=== PATIENT | male | born 1940 | race Caucasian/White ===

== ENCOUNTER 2016-10-01 18:19 | Inpatient (IN) | payer MEDICARE, OTHER ==
[2016-10-01] MEDS ORDERED: ASPIRIN81 M1 (20:54)
[2016-10-01] MEDS ORDERED: NORVASC10 M2 (20:54)
[2016-10-01] MEDS ORDERED: GLUCOTROL5 M1 (20:55)
[2016-10-01] MEDS ORDERED: PRINIVIL10 M1 (20:55)
[2016-10-01] MEDS ORDERED: INVOKANA100 MG (20:55)
[2016-10-01] MEDS ORDERED: OMEPRAZOLE20 M4 (20:56)
[2016-10-01] MEDS ORDERED: ZOCOR10 M1 (20:56)
[2016-10-01] MEDS ORDERED: GLUCOPHAGE1000 M1 (20:56)
[2016-10-01] MEDS ORDERED: COUMADIN3 M1 (20:58)
[2016-10-01] MEDS ORDERED: COUMADIN4 M1 (20:59)
[2016-10-02 05:40] LABS: BASO % 0.6 % (0-2); EOS % 4.8 % (0-7); EOSINOPHIL ABSOLUTE COUNT 0.3 tho/cmm (0.0-0.7); HCT-HEMATOCRIT 40.3 % (36.0-53.5); HGB-HEMOGLOBIN 13.5 gm/dl (13.5-17.0); IMMATURE GRANULOCYTES ABSOLUTE 0.02 tho/cmm (0-0.03); IMMATURE GRANULOCYTES PERCENT 0.4 % (0-0.3); LYMPH % 28.2 % (20-45); LYMPH ABSOLUTE COUNT 1.5 tho/cmm (0.8-4.5); MCH (MEAN CORPUSCULAR HGB) 30.4 pg (28.0-32.0); MCHC MEAN CORPUSCULAR HGB CONC 33.5 % (32.0-36.0); MCV (MEAN CELL VOLUME) 90.8 fl (82.0-96.0); MONO % 8.4 % (0-12); MONOCYTE ABSOLUTE COUNT 0.4 tho/cmm (0.0-1.2); NEUTROPHILS % 57.6 % (40-80); PLATELET COUNT 198 tho/cmm (150-450); RED BLOOD COUNT 4.44 mil/cmm (4.40-5.70); WHITE BLOOD COUNT 5.2 tho/cmm (4.0-10.0)
[2016-10-02 05:41] LABS: INR 2.3 INR (0.9-1.1); PROTHROMBIN TIME 27.3 SECONDS (9.0-13.6)
[2016-10-02 05:46] LABS: ANION GAP 11 mmol/L (0-20); BLOOD UREA NITROGEN 21 mg/dl (6-24); CALCIUM 9.6 mg/dl (8.5-10.5); CARBON DIOXIDE-VENOUS 27 mmol/L (22-32); CHLORIDE 105 mmol/l (96-110); CREATININE 0.94 mg/dl (0.60-1.30); GLUCOSE 130 mg/dL (70-110); POTASSIUM 3.8 mmol/L (3.7-5.1); SODIUM 139 mmol/L (135-145); eGFR VALUE FOR BLACK >60 mL/Min
[2016-10-03 06:48] LABS: INR 1.6 INR (0.9-1.1); PROTHROMBIN TIME 18.8 SECONDS (9.0-13.6)
[2016-10-04 06:42] LABS: INR 1.2 INR (0.9-1.1); PROTHROMBIN TIME 14.5 SECONDS (9.0-13.6)
[2016-10-05 06:14] LABS: INR 1.2 INR (0.9-1.1); PROTHROMBIN TIME 13.5 SECONDS (9.0-13.6)
[2016-10-06 06:12] LABS: INR 1.1 INR (0.9-1.1); PROTHROMBIN TIME 12.8 SECONDS (9.0-13.6)
[2016-10-06 14:27] LABS: BASO % 0.4 % (0-2); EOS % 3.7 % (0-7); EOSINOPHIL ABSOLUTE COUNT 0.3 tho/cmm (0.0-0.7); HCT-HEMATOCRIT 39.3 % (36.0-53.5); IMMATURE GRANULOCYTES ABSOLUTE 0.05 tho/cmm (0-0.03); IMMATURE GRANULOCYTES PERCENT 0.7 % (0-0.3); MCH (MEAN CORPUSCULAR HGB) 30.4 pg (28.0-32.0); MCHC MEAN CORPUSCULAR HGB CONC 33.1 % (32.0-36.0); MCV (MEAN CELL VOLUME) 91.8 fl (82.0-96.0); MEAN PLATELET VOLUME 10.1 cmc (9.4-12.4); MONO % 5.4 % (0-12); MONOCYTE ABSOLUTE COUNT 0.4 tho/cmm (0.0-1.2); NEUTROPHIL ABSOLUTE COUNT 4.1 tho/cmm (1.6-8.0); NEUTROPHIL-AUTOMATED 4.1 tho/cmm (1.6-8.0); NEUTROPHILS % 60.8 % (40-80); PLATELET COUNT 203 tho/cmm (150-450); RED BLOOD COUNT 4.28 mil/cmm (4.40-5.70); WHITE BLOOD COUNT 6.8 tho/cmm (4.0-10.0)
[2016-10-06 14:30] LABS: ALB/GLOB RATIO 0.4 (0.8-2.0); ALBUMIN 2.9 g/dl (3.5-5.0); ALKALINE PHOSPHATASE 81 U/L (33-138); ALT/SGPT 21 U/L (12-78); ANION GAP 10 mmol/L (0-20); AST/SGOT 19 U/L (10-40); BILIRUBIN,TOTAL 0.4 mg/dl (0.0-1.5); BLOOD UREA NITROGEN 29 mg/dl (6-24); CALCIUM 9.7 mg/dl (8.5-10.5); CARBON DIOXIDE-VENOUS 29 mmol/L (22-32); CHLORIDE 100 mmol/l (96-110); CREATININE 1.09 mg/dl (0.60-1.30); GLUCOSE 117 mg/dL (70-110); LIPASE 173 U/L (73-393); POTASSIUM 4.3 mmol/L (3.7-5.1); SODIUM 135 mmol/L (135-145); eGFR VALUE FOR BLACK >60 mL/Min
[2016-10-07 05:21] LABS: BASO % 0.7 % (0-2); EOS % 3.9 % (0-7); EOSINOPHIL ABSOLUTE COUNT 0.2 tho/cmm (0.0-0.7); HCT-HEMATOCRIT 39.9 % (36.0-53.5); HGB-HEMOGLOBIN 12.9 gm/dl (13.5-17.0); IMMATURE GRANULOCYTES ABSOLUTE 0.04 tho/cmm (0-0.03); IMMATURE GRANULOCYTES PERCENT 0.7 % (0-0.3); LYMPH % 35.1 % (20-45); MCHC MEAN CORPUSCULAR HGB CONC 32.3 % (32.0-36.0); MCV (MEAN CELL VOLUME) 92.8 fl (82.0-96.0); MEAN PLATELET VOLUME 9.9 cmc (9.4-12.4); MONO % 6.9 % (0-12); MONOCYTE ABSOLUTE COUNT 0.4 tho/cmm (0.0-1.2); NEUTROPHILS % 52.7 % (40-80); PLATELET COUNT 210 tho/cmm (150-450); WHITE BLOOD COUNT 5.7 tho/cmm (4.0-10.0)
[2016-10-07 05:25] LABS: INR 1.2 INR (0.9-1.1); PROTHROMBIN TIME 14.5 SECONDS (9.0-13.6)
[2016-10-07 05:41] LABS: ALBUMIN 2.8 g/dl (3.5-5.0); ANION GAP 12 mmol/L (0-20); BLOOD UREA NITROGEN 27 mg/dl (6-24); CALCIUM 9.4 mg/dl (8.5-10.5); CARBON DIOXIDE-VENOUS 27 mmol/L (22-32); CHLORIDE 103 mmol/l (96-110); GLUCOSE 155 mg/dL (70-110); SODIUM 138 mmol/L (135-145)
[2016-10-07 05:45] LABS: ALB/GLOB RATIO 0.4 (0.8-2.0); ALKALINE PHOSPHATASE 88 U/L (33-138); ALT/SGPT 21 U/L (12-78); AST/SGOT 14 U/L (10-40); BILIRUBIN,TOTAL 0.3 mg/dl (0.0-1.5); CREATININE 1.14 mg/dl (0.60-1.30); eGFR VALUE FOR BLACK >60 mL/Min
[2016-10-07] MEDS ORDERED: CYCLOBENZAPRINE10 M1 PO (13:00)
[2016-10-07] MEDS ORDERED: PERCOCET 5-3251 EACH PO (13:00)
== END 2016-10-07 17:45 | DRG 517 ==
LOC: 5EB 18:19
PROVIDERS: Emergency Medicine; Internal Medicine; ADMIT Internal Medicine
PROC: 0QS03ZZ Reposition Lumbar Vertebra, Percutaneous Approach (ICD-10-PCS; principal; 2016-10-04)
PROC: 0QU03JZ Supplement Lumbar Vertebra with Synthetic Substitute, Percutaneous Approach (ICD-10-PCS; 2016-10-04)
DX: M48.56XA Collapsed vertebra, not elsewhere classified, lumbar region, initial encounter for fracture (principal); E11.40 Type 2 diabetes mellitus with diabetic neuropathy, unspecified; H81.10 Benign paroxysmal vertigo, unspecified ear; I10 Essential (primary) hypertension; J45.909 Unspecified asthma, uncomplicated; K21.9 Gastro-esophageal reflux disease without esophagitis; R10.9 Unspecified abdominal pain; Z86.711 Personal history of pulmonary embolism; Z86.718 Personal history of other venous thrombosis and embolism
CPT/HCPCS: G8978-GO-CI; G8979-GO-CI; G8980-GO-CI; J1815; J2250; J3010; Q9967